=== PATIENT | female | born 1950 | race African-American/Black ===

== ENCOUNTER → 2018-05-22 | Outpatient (CLI) | payer MEDICARE, OTHER ==
[~2018-05-22] VITALS: Ht 172.7 cm; Wt 104.8 kg
[~2018-05-22] MED LIST: ACETAMINOPHEN500 M1 PO; ADULT LOW DOSE81 MG PO; ADVAIR HFA115 MCG/21 INH; ALDACTONE25 MG PO; ALLEGRA ALLERG180 MG PO; ALLOPURINOL 10100 M1 PO; ALLOPURINOL 10100 M2 PO; AMIODARONE PO; AMLODIPINE BESY10 MG PO; AMLODIPINE BESYL5 MG PO; ANTACID600 MG PO; ANTACID650 MG PO; APAP500 PO; ASPIRIN EC325 M1 PO; ASPIRIN325 PO; ATIVAN1 MG PO; ATORVASTATIN CA40 MG PO; B-12250 MCG PO; BAYER CHEWABLE81 MG PO; BISACODYL SUPP10 MG RECTAL; CALCIUM 1,0001 EACH PO; CARVEDILOL12.5 MG PO; CATAPRES-TTS 10.1 MG; CEFTIN 250 MG250 MG PO; CEFTRIAXON1 GM/50 ML IV; CELLCEPT 250 M250 M1 PO; CELLCEPT 250 M250 MG PO; CELLCEPT500 MG PO; CIPRO250 MG/51 PO; CIPROFLOXACIN500 M1 PO; CLARITIN10 MG PO; CLONAZEPAM 1 MG1 M1 PO; CLONIDINE0.1 PO; COLACE100 MG PO; COLCHICINE PO; DELTA D3400 UNIT PO; DEMADEX20 MG PO; DILTIAZEM 24HR180 M1 PO; DILTIAZEM 24HR240 M1 PO; DURICEF PO; ELEMENTAL CALC600 MG PO; FAMOTIDINE 20 M20 MG PO; FLEXERIL PO; FLONASE 0.05%50 MCG NASAL; FLONASE16 GM INH; HEARTBURN RELIE75 M1; HECORIA0.5 MG PO; HECORIA1 MG PO; HEPARIN SO5000 UNIT/ SUBQ; HUMALOG100 UNIT/1 SUBQ; HYDROCERIN CREA1 JAR TOP; HYDROCHLOROTHIA25 M1 PO; HYDROCODON-ACE1 EAC7 PO; K-DUR 20 MEQ T20 MEQ PO; KEPPRA 500 MG500 M1 PO; LANSOPRAZOLE30 M1 PO; LANTUS SUBQ; LANTUSSOLASTAR; LEVAQUIN 250 M250 MG PO; LEVEMIR SUBQ; LEVOTHYROXIN0.112 M1 PO; LEVOTHYROXIN0.125 M1 PO; LEVOTHYROXIN0.137 M1 PO; LEVOTHYROXINE 0.1 MG PO; LEVOTHYROXINE0.2 M1 PO; LIDODERM 5%1 PATC1 TRANSDERM; LIDODERM 5%1 PATCH TRANSDERM; LIPITOR 20 MG T20 M1 PO; LISINOPRIL20 MG; LISINOPRIL20 MG PO; LISINOPRIL40 MG PO; LOPRESSOR100 MG PO; LOPRESSOR50 PO; LORTAB 7.5-3251 EACH PO; LOTRISONE CREAM15 GM TP; MACRODANTIN100 MG PO; METOLAZONE 2.52.5 MG PO; MEVACOR40 MG PO; MULTI VITAMIN1 EACH PO; MULTIVITAMINS PO; MULTIVITAMINS1 EAC7 PO; NORVASC 5 MG TAB5 MG PO; NORVASC10 MG PO; NOVOLOG100 UNIT/1 SQ; NOVOLOG100 UNIT/1 SUBQ; NYSTATIN 1100000 U/M SW&SWALLOW; NYSTATIN 1100000 U/M SWISH&SPIT; OMEPRAZOLE 20 M20 MG PO; OMEPRAZOLE20 M2 PO; PACERONE 200 M200 M1 PO; PAIN & FEVER325 MG PO; PANTOPRAZOLE SO40 M1 PO; PHENADOZ25 MG RC; PHENERGAN 25 MG25 M1 PO; PRAVACHOL40 MG PO; PRINIVIL40 MG PO; PROAIR HFA8.5 GM; PROAIR HFA8.5 GM INH; PROGRAF1 MG PO; PROTONIX 20 MG20 MG; PROTONIX40 M2 PO; PULMICORT0.25 MG/1 INH; RANITIDINE 150150 M1 PO; RANITIDINE 150150 MG PO; SINGULAIR 10 MG10 M1 PO; SLOW RELEASE I142 M1 PO; SODIUM BICARBO650 M3 PO; SYMBICORT160 MCG/4. INH; SYMBICORT80 MCG/4.1 INH; SYNTHROID125 MCG PO; TACROLIMUS1 MG PO; TERAZOSIN HCL5 MG PO; TOPROL XL100 MG PO; TOPROL XL50 MG; TOPROL XL50 MG PO; TORSEMIDE20 MG PO; TYLENOL325 MG PO; ULTRAM 50MG TAB50 MG PO; VENTOLIN HFA 1818 GM INH; VITAMIN B-12100 MC1 PO; VITAMIN B-12250 MC2 PO; VITAMIN B-12250 MCG PO; VITAMIN D1000 UNI1 PO; VITAMIN D22000 UNIT PO; VITAMIN D32000 UNI1 PO; ZANTAC 150MG T150 M1 PO; ZANTAC 150MG T150 MG PO
[2018-05-22 08:47] LABS: HEMATOCRIT 34.1 % (37.0-47.0); HEMOGLOBIN 10.6 gm/dL (12.0-15.0); MCH 25.8 pg (26.0-34.0); MCV 83.5 fL (80.0-100.0); MPV 8.2 fl. (7.2-11.1); RBC 4.09 mil/uL (4.20-5.00); RDW-CV 15.8 % (10.5-14.5); WBC 4.6 thou/uL (4.0-11.0)
[2018-05-22 08:56] VITALS: BP 180/66
[2018-05-22 09:15] LABS: APTT 22.1 Seconds (25.0-31.3)
[2018-05-22 10:02] LABS: ALBUMIN 2.9 g/dL (3.4-5.0); CALCIUM 8.7 mg/dL (8.5-10.1); CREATININE 3.2 mg/dL (0.6-1.3); POTASSIUM 3.8 mmol/L (3.5-5.1); TOTAL BILIRUBIN 0.2 mg/dL (<0.1-1.0); TOTAL PROTEIN 6.5 g/dL (6.4-8.2)
--- NOTE | 2018-05-22 13:04 | EKG ---
[place] [address] ELECTROCARDIOGRAM REPORT Name: SANJU ROIBNS Room: [facility]#: [id number] Admission: 05/22/18 Attend Phys: Milton Banks MD Discharge: Date of : 48 Report #: [id number] THIS REPORT FOR: //name// [facility] Test Date: 2018-05-22 Test Time: 09:17:58 Pat Name: SANJU ODOM Department: Room: Gender: Loan Manager: : 1950 Requested By: Milton Bansk Order Number: [id number] Reading MD: Milton Banks Measurements Intervals [place] Rate: 65 P: 47 AR: 210 QRS: 34 QRSD: 108 T: 254 QT: 450 QTc: 468 Interpretive Statements Sinus rhythm Probable left atrial enlargement LVH with secondary repolarization abnormality No previous ECG available for comparison Electronically Signed On 05-22-2018 13:04:10 CDT by Milton Banks [email or web address] <ELECTRONICALLY SIGNED> By: Milton Banks MD, [facility] 05/22/18 1304 6 6 Milton Banks MD, [facility] /EPI
[2018-05-22 15:22] VITALS: BP 193/69
[2018-05-22 15:44] VITALS: BP 198/66
[2018-05-22 16:01] VITALS: BP 197/68
[2018-05-22 16:17] VITALS: BP 201/68
[2018-05-22 16:28] VITALS: BP 188/67
--- NOTE | 2018-05-24 11:31 | CARD ---
[address] [address] CARDIAC CATH REPORT Name: SANJU ROBINS Room: [facility]#: [id number] Admission: 05/22/18 Attend Phys: Milton Banks MD Discharge: Date of : 48 Report #: [id number] THIS REPORT FOR: //name// APPROVED REPORT Study performed: 05/22/2018 13:22:08 Patient Details Patient Status: In-Patient Room #: The patient is a 67 year-old female Event Personnel Milton Banks [employer], Kianna Hou Pet Sitting, Adrianne Arenas RN Monitor Procedures Performed Left Heart Catheterization Indication Positive stress test Risk Factors HypertensionRenal Failure Procedure Narrative The patient was brought electively to the Cardiac Catheterization Laboratory and was prepped and draped in a sterile manner. The right femoral was infiltrated with 2% Lidocaine subcutaneous anesthesia. A 6fr Ultimum Sheath sheath was inserted into the right femoral artery. Coronary angiography was performed using coronary diagnostic catheters. The right coronary system was accessed and visualized with a 6Fr 3DRC catheter. The left coronary system was accessed and visualized with a 6Fr JL4 catheter. The left ventricle was accessed and visualized with a 6 Fr Angled Pigtail catheter. Patient was originally accessed via Right Radial Artery. Two attempts made to visualize the coronaries unsuccessfully. Radial Band Applied and no complications noted. Intraoperative Conscious Sedation Sedation start time: 14:10 Case end Time: 15:00 Fentanyl 50 mcg Versed 1 mg Coronary Angiography The patient's coronary anatomy is right dominant. [address] [address] CARDIAC CATH REPORT Name: SANJU ROBINS Room: [facility]#: [id number] Admission: 05/22/18 Attend Phys: Milton Banks MD Discharge: Date of : 48 Report #: [id number] Diagnostic Cath Left Main normal LAD mild 30% mid apical lesions Diagonal 1 large normal Circumflex mid 30-40% OM1 normal,large OM2 very small L PDA small normal Right Coronary normal R PDA normal RPLV normal Left Ventriculography Left Ventriculography was not performed. Ejection Fraction was >55% based off patient's Nuclear Cardiac Stress Test. Hemodynamics The aortic pressure is 171/53 mmHg with a mean of 55 mmHg. The left ventricular pressure is 176/2 mmHg with a mean of mmHg. The left ventricular end diastolic pressure is 22 mmHg. There was no gradient across the aortic valve upon pullback. Conclusion 1. nonobstructive CAD 2. ckd-90cc of contrast was utilized Recommendations Aggressive Medical Therapy <ELECTRONICALLY SIGNED> By: Milton Banks MD, [facility] 05/24/18 1130 1130 1130Marmegan Banks MD, FACC /INF
== END | disposition home or self-care (01) ==
LOC: M.CL 08:06
PROVIDERS: Internal Medicine Cardiovascular Disease
DX: I25.10 Atherosclerotic heart disease of native coronary artery without angina pectoris (principal); I13.0 Hypertensive heart and chronic kidney disease with heart failure and stage 1 through stage 4 chronic kidney disease, or unspecified chronic kidney disease; I50.30 Unspecified diastolic (congestive) heart failure; E11.22 Type 2 diabetes mellitus with diabetic chronic kidney disease; N18.9 Chronic kidney disease, unspecified; E11.10 Type 2 diabetes mellitus with ketoacidosis without coma; E03.9 Hypothyroidism, unspecified; E66.09 Other obesity due to excess calories; I48.0 Paroxysmal atrial fibrillation; J44.9 Chronic obstructive pulmonary disease, unspecified; K21.9 Gastro-esophageal reflux disease without esophagitis; G47.33 Obstructive sleep apnea (adult) (pediatric); Z90.710 Acquired absence of both cervix and uterus; Z79.01 Long term (current) use of anticoagulants; Z79.899 Other long term (current) drug therapy; Z86.73 Personal history of transient ischemic attack (TIA), and cerebral infarction without residual deficits; Z94.0 Kidney transplant status